=== PATIENT | female | born 1945 | race Caucasian/White ===

== ENCOUNTER → 2016-05-17 | Outpatient (CLI) | payer MEDICARE, BC | END | disposition home or self-care (01) | LOC: RAD.S 07:58 | DX: I72.2 Aneurysm of renal artery (principal); N83.201 Unspecified ovarian cyst, right side; D25.9 Leiomyoma of uterus, unspecified ==

== ENCOUNTER → 2016-05-31 | Outpatient (CLI) | payer MEDICARE, BC | END | disposition home or self-care (01) | LOC: PTH.S 05-27 10:19 → RAD.S 15:42 | DX: I72.2 Aneurysm of renal artery (principal); R19.03 Right lower quadrant abdominal swelling, mass and lump ==

== ENCOUNTER → 2016-06-14 | Outpatient (CLI) | payer MEDICARE, BC | END | disposition home or self-care (01) | LOC: RAD.S 13:00 | DX: N28.1 Cyst of kidney, acquired (principal) ==